=== PATIENT | male | born 1955 | race Caucasian/White ===

== ENCOUNTER 2020-06-12 11:05 | Outpatient (CLI) | payer OTHER, SELFPAY ==
[2020-06-12 13:05] LABS: Potassium 4.2 mmol/L (3.4-5.0)
[2020-06-12 13:11] LABS: Anion Gap 7 mmol/L (8-16); Blood Urea Nitrogen 22 mg/dL (9-20); Carbon Dioxide 25 mmol/L (22-30); Chloride 102 mmol/L (98-107); Cholesterol 148 mg/dL (0-200); Estimated Glomerular Filt Rate 41; Glucose 186 mg/dL (75-110); HDL Direct 28 mg/dL; Sodium 134 mmol/L (137-145); Triglycerides 247 mg/dL (<150)
[2020-06-12 13:17] LABS: LDL Cholesterol Direct 78 mg/dL
[2020-06-12 13:30] LABS: Creatinine Urine 146.5 mg/dL
[2020-06-12 14:14] LABS: Microalbumin Urine Random > 1140.0 mg/L (0-16.7)
== END 2020-06-12 11:06 | disposition home or self-care (01) ==
LOC: ANHWCLAB 11:09
PROVIDERS: PCP Family Medicine; Visit Provider Internal Medicine Endocrinology, Diabetes & Metabolism
DX: E11.65 Type 2 diabetes mellitus with hyperglycemia (principal); Z51.81 Encounter for therapeutic drug level monitoring; Z79.899 Other long term (current) drug therapy; R79.89 Other specified abnormal findings of blood chemistry
CPT/HCPCS: 36415; 80048; 80061; 82043; 84443

== ENCOUNTER 2020-09-24 09:58 | Outpatient (CLI) | payer OTHER, SELFPAY ==
[2020-09-24 13:24] LABS: Anion Gap 11 mmol/L (8-16); Blood Urea Nitrogen 25 mg/dL (9-20); Calcium 9.6 mg/dL (8.4-10.2); Carbon Dioxide 21 mmol/L (22-30); Chloride 106 mmol/L (98-107); Cholesterol 151 mg/dL (0-200); Estimated Glomerular Filt Rate 41; Glucose 204 mg/dL (75-110); HDL Direct 31 mg/dL; Potassium 5.2 mmol/L (3.4-5.0); Sodium 138 mmol/L (137-145); Triglycerides 246 mg/dL (<150)
[2020-09-24 13:35] LABS: LDL Cholesterol Direct 66 mg/dL
[2020-09-24 13:57] LABS: Creatinine Urine 101.5 mg/dL
[2020-09-24 16:04] LABS: MALB Creatinine Ratio 1123.2 mg/g (0-30); Microalbumin Urine Random > 1140.0 mg/L (0-16.7)
== END 2020-09-24 09:59 | disposition home or self-care (01) ==
LOC: ANHWCLAB 10:01
PROVIDERS: PCP Family Medicine; Visit Provider Internal Medicine Endocrinology, Diabetes & Metabolism
DX: E11.65 Type 2 diabetes mellitus with hyperglycemia (principal); R80.9 Proteinuria, unspecified; Z79.4 Long term (current) use of insulin
CPT/HCPCS: 36415; 80048; 80061; 82043; 84443

== ENCOUNTER 2020-10-27 07:47 | Outpatient (CLI) | payer OTHER, SELFPAY ==
[2020-10-27 16:46] LABS: Anion Gap 14 mmol/L (8-16); Blood Urea Nitrogen 25 mg/dL (9-20); Calcium 9.9 mg/dL (8.4-10.2); Carbon Dioxide 21 mmol/L (22-30); Chloride 108 mmol/L (98-107); Estimated Glomerular Filt Rate 36; Glucose 47 mg/dL (65-110); Potassium 4.4 mmol/L (3.4-5.0); Sodium 143 mmol/L (137-145)
== END 2020-10-27 07:48 | disposition home or self-care (01) ==
PROVIDERS: PCP Family Medicine; Visit Provider Internal Medicine Endocrinology, Diabetes & Metabolism
DX: E11.65 Type 2 diabetes mellitus with hyperglycemia (principal); E87.5 Hyperkalemia; Z79.4 Long term (current) use of insulin
CPT/HCPCS: 36415; 80048

== ENCOUNTER 2020-12-01 07:31 | Outpatient (CLI) | payer OTHER, SELFPAY ==
[2020-12-01 16:15] LABS: Basophils Absolute Auto 0.1 K/mm3 (0.0-0.1); Basophils Percent Auto 1.1 % (0.2-1.2); Eosinophils Absolute Auto 0.2 K/mm3 (0-0.3); Eosinophils Percent Auto 2.2 % (0-4.4); Hematocrit 44.6 % (42.0-52.0); Hemoglobin 14.7 g/dL (14.0-18.0); Immature Granulocyte Absolute 0.07 K/mm3 (0.00-0.031); Lymphocytes Absolute Auto 1.36 K/mm3 (0.9-3.2); Mean Corpuscular Hemoglobin 27.9 pg (26-34); Mean Corpuscular Volume 84.6 fl (80-100); Mean Platelet Volume 11.6 fl (7.4-10.4); Monocytes Absolute Auto 0.7 K/mm3 (0.1-0.6); Monocytes Percent Auto 9.3 % (2.6-8.5); Neutrophils Absolute Auto 4.8 K/mm3 (1.3-6.7); Neutrophils Percent Auto 67.4 % (45.5-73.1); Platelet Count Result 274 k/mm3 (150-375); Red Blood Count 5.27 M/mm3 (4.6-6.20); Red Cell Distribution Width 13.2 % (11.5-14.5); White Blood Count 7.2 K/mm3 (4.5-10.0)
[2020-12-01 16:23] LABS: Albumin Level 4.7 g/dL (3.5-5.1); Anion Gap 13 mmol/L (8-16); Blood Urea Nitrogen 28 mg/dL (9-20); Calcium 10.1 mg/dL (8.4-10.2); Carbon Dioxide 22 mmol/L (22-30); Chloride 98 mmol/L (98-107); Estimated Glomerular Filt Rate 36; Glucose 209 mg/dL (65-110); Phosphorus 5.6 mg/dL (2.5-4.5); Potassium 4.6 mmol/L (3.4-5.0); Sodium 133 mmol/L (137-145)
[2020-12-01 16:35] LABS: Parathyroid Intact 23.4 pg/mL (7.5-53.5)
[2020-12-01 16:44] LABS: Vitamin D 25 Hydroxy 50.3 ng/mL
[2020-12-01 16:47] LABS: Creatinine Urine 102.1 mg/dL
[2020-12-01 17:38] LABS: MALB Creatinine Ratio 461.6 mg/g (0-30); Microalbumin Urine Random 471.3 mg/L (0-16.7)
[2020-12-01 18:22] LABS: Add Urine Microscopic? YES; Appearance Urine Clear (Clear); Bilirubin Urine Negative (Negative); Blood Urine Negative (Negative); Color Urine Yellow (Yellow); Glucose Urine UA 3+ mg/dL (Negative); Ketones Urine Negative (Negative); Leukocyte Esterase Ur Negative LEU/UL (NEGATIVE); Nitrate Urine Negative (Negative); Protein Urine 2+ mg/dL (Negative); Specific Grav Ur 1.025 (1.001-1.035); Urobilinogen Urine Negative mg/dL (<2.0)
[2020-12-01 20:18] LABS: RBC Urine 0-2 /hpf (0-2); Squamous Epithelial Cell Urine Few /hpf (Few)
== END 2020-12-01 07:32 | disposition home or self-care (01) ==
LOC: ANHWCLAB 07:42
PROVIDERS: PCP Family Medicine
DX: N18.30 Chronic kidney disease, stage 3 unspecified (principal)
CPT/HCPCS: 36415; 80069; 81001; 82043; 82306; 83970; 85025

== ENCOUNTER 2021-03-16 07:23 | Outpatient (CLI) | payer OTHER, SELFPAY ==
[2021-03-16 13:24] LABS: Albumin Level 4.1 g/dL (3.5-5.1); Anion Gap 11 mmol/L (8-16); Blood Urea Nitrogen 31 mg/dL (9-20); Calcium 9.2 mg/dL (8.4-10.2); Carbon Dioxide 22 mmol/L (22-30); Chloride 106 mmol/L (98-107); Estimated Glomerular Filt Rate 32; Glucose 137 mg/dL (65-110); Phosphorus 3.6 mg/dL (2.5-4.5); Potassium 4.1 mmol/L (3.4-5.0); Sodium 139 mmol/L (137-145)
[2021-03-16 13:37] LABS: Basophils Absolute Auto 0.1 K/mm3 (0.0-0.1); Eosinophils Absolute Auto 0.1 K/mm3 (0-0.3); Eosinophils Percent Auto 2.1 % (0-4.4); Hematocrit 41.7 % (42.0-52.0); Hemoglobin 13.9 g/dL (14.0-18.0); Immature Granulocyte Absolute 0.03 K/mm3 (0.00-0.031); Immature Granulocyte Percent A 0.4 % (0-0.5); Lymphocytes Absolute Auto 1.14 K/mm3 (0.9-3.2); Lymphocytes Percent Auto 17.1 % (18.3-44.2); Mean Corpuscular HGB Conc 33.3 g/dl (32-36); Mean Corpuscular Hemoglobin 28.9 pg (26-34); Mean Corpuscular Volume 86.7 fl (80-100); Mean Platelet Volume 11.7 fl (7.4-10.4); Monocytes Absolute Auto 0.6 K/mm3 (0.1-0.6); Monocytes Percent Auto 8.2 % (2.6-8.5); Neutrophils Absolute Auto 4.7 K/mm3 (1.3-6.7); Neutrophils Percent Auto 71.2 % (45.5-73.1); Platelet Count Result 232 k/mm3 (150-375); Red Blood Count 4.81 M/mm3 (4.6-6.20); Red Cell Distribution Width 13.7 % (11.5-14.5); White Blood Count 6.7 K/mm3 (4.5-10.0)
[2021-03-16 13:40] LABS: Parathyroid Intact 38.9 pg/mL (7.5-53.5)
== END 2021-03-16 07:24 | disposition home or self-care (01) ==
LOC: ANHWCLAB 07:30
PROVIDERS: PCP Family Medicine
DX: N18.30 Chronic kidney disease, stage 3 unspecified (principal)
CPT/HCPCS: 36415; 80069; 83970; 85025

== ENCOUNTER 2021-03-26 08:24 | Outpatient (CLI) | payer OTHER, SELFPAY ==
--- NOTE | 2021-03-26 08:35 | EST_ITS ---
Patient Info Name: Alex Rachel Age: 65 years : 1955 Gender: Male Ht: 73 in Wt: 240 lbs BSA: 2.40 m2 HR: 72 bpm BP: 156 / 84 mmHg Heart Rhythm: Sinus Rhythm Exam Date: 03/26/2021 8:56 AM Exam Location: [facility] Pulmonary Patient Status: Outpatient Admit Date: 03/26/2021 Staff Ordering Physician: Akil Loco DO Tea Room Manager: Dominique Rodrigues RDCS Attending Provider: DR. LOCO Referring Physician: Edgard MURDOCK; Exercise Technologist: Mary Weller CT Exercise Physician: Akil Loco DO Exam Type: CA stress echo Study Info Indications R07.9 - Chest pain, unspecified Treadmill exercise stress echocardiogram is performed. Summary 1. 1. Negative Wayne exercise stress test for ischemic ST changes by ECG criteria. 2. 2. Reduced functional capacity, achieving 7 METs of workload. 3. 3. Baseline hypertension with hypertensive response to exercise. 4. 4. Appropriate HR response to exercise. 5. 5. Appropriate HR recovery at 1 minute post exercise. 6. 6. Negative stress echocardiogram for ischemia by wall motion analysis. 7. 7. Patient informed of the above results. Stress Echo Findings Left Ventricle Appropriate increase in LV endocardial thickening with systole. Appropriate augmentation of contractility with systole. No wall motion abnormality. Left Ventricle Normal LV systolic function, no wall motion abnormality. Protocol: Wayne Stress ECG Details Stage: REST Duration (min): 16 min : 51 sec Speed (mph): 0.0 Grade (%): 0 HR (bpm): 90 SBP (mmHg): 156 DBP (mmHg): 84 METS: --- Stage: REST Duration (min): 17 min : 22 sec Speed (mph): 0.0 Grade (%): 0 HR (bpm): 86 SBP (mmHg): 156 DBP (mmHg): 84 METS: --- Stage: STAGE 1 Duration (min): 1 min : 0 sec Speed (mph): 1.7 Grade (%): 10 HR (bpm): 100 SBP (mmHg): 156 DBP (mmHg): 84 METS: --- Stage: STAGE 1 Duration (min): 2 min : 0 sec Speed (mph): 1.7 Grade (%): 10 HR (bpm): 112 SBP (mmHg): 156 DBP (mmHg): 84 METS: --- Stage: STAGE 1 Duration (min): 3 min : 0 sec Speed (mph): 1.7 Grade (%): 10 HR (bpm): 120 SBP (mmHg): 211 DBP (mmHg): 75 METS: --- Stage: STAGE 2 Duration (min): 1 min : 0 sec Speed (mph): 2.5 Grade (%): 12 HR (bpm): 129 SBP (mmHg): 211 DBP (mmHg): 75 METS: --- Stage: STAGE 2 Duration (min): 2 min : 0 sec Speed (mph): 2.5 Grade (%): 12 HR (bpm): 137 SBP (mmHg): 241 DBP (mmHg): 69 METS: --- Stage: STAGE 2 Duration (min): 2 min : 2 sec Speed (mph): 0.0 Grade (%): 0 HR (bpm): 138 SBP (mmHg): 241 DBP (mmHg): 69 METS: --- Stage: RECOVERY Duration (min): 0 min : 57 sec Speed (mph): 0.0 Grade (%): 0 HR (bpm): 130 SBP (mmHg): 241 DBP (mmHg): 69 METS: --- Stage: RECOVERY Duration (min): 1 min : 57 sec Speed (mph): 0.0 Grade (%): 0 HR (bpm): 122 SBP (mmHg): 241 DBP (mmHg): 69 METS:
== END 2021-03-26 08:25 | disposition home or self-care (01) ==
LOC: ANHCARD 08:26
PROVIDERS: PCP Family Medicine; Visit Provider Internal Medicine Cardiovascular Disease
DX: R07.9 Chest pain, unspecified (principal)
CPT/HCPCS: 93351

== ENCOUNTER 2021-05-04 07:22 | Outpatient (CLI) | payer OTHER, SELFPAY ==
--- NOTE | 2021-05-04 07:46 | ECHO_ITS ---
Patient Info Name: Alex Rachel Age: 66 years : 1955 Gender: Male Ht: 73 in Wt: 227 lbs BSA: 2.33 m2 HR: 62 bpm BP: 154 / 90 mmHg Technical Quality: Fair Exam Date: 05/04/2021 8:16 AM Exam Location: [facility] Patient Status: Outpatient Admit Date: 05/04/2021 Staff Ordering Physician: Akil Rene DO Petal Shaper Hand: Katey Beasley RDCS Attending Provider: Akil Rene DO Referring Physician: Edgard MURDOCK; Exam Type: CA echo doppler color flow Study Info Indications R01.1 - Cardiac murmur, unspecified Complete two-dimensional, color flow and Doppler transthoracic echocardiogram is performed. Summary 1. Complete two-dimensional, color flow and Doppler transthoracic echocardiogram is performed. 2. Left ventricular chamber dimension is normal. 3. Left ventricular systolic function is normal, estimated at 60-65%. 4. There is mildly increased left ventricular wall thickness. 5. The left ventricular diastolic function is grade I diastolic dysfunction. 6. E/e' 10 is mildly elevated. 7. Global longitudinal strain is abnormal at -14.4%. 8. There is mild aortic valve sclerosis. 9. There is trace tricuspid valve regurgitation. 10. No pulmonary hypertension, estimated pulmonary arterial systolic pressure is 26 mmHg. 11. There is trace pulmonic regurgitation. Left Ventricle E/e' 10 is mildly elevated. Global longitudinal strain is abnormal at -14.4%. Left ventricular chamber dimension is normal. Left ventricular systolic function is normal, estimated at 60-65%. There is mildly increased left ventricular wall thickness. The left ventricular diastolic function is grade I diastolic dysfunction. Right Ventricle Right ventricular chamber dimension is normal. Right ventricular systolic function is normal. Left Atria Left atrial chamber dimension is normal. Right Atria Right atrial chamber dimension is normal. Aortic Valve The aortic valve is trileaflet. There is mild aortic valve sclerosis. There is no aortic valve stenosis. There is no aortic valve regurgitation. Pulmonic Valve There is trace pulmonic regurgitation. Mitral Valve There is no mitral valve stenosis. There is no mitral valve regurgitation. Tricuspid Valve There is trace tricuspid valve regurgitation. No pulmonary hypertension, estimated pulmonary arterial systolic pressure is 26 mmHg. Pericardium/Pleural There is no pericardial effusion. Inferior Vena Cava Normal inferior vena cava with >50% collapse upon inspiration consistent with normal right atrial pressure, 5 mmHg. Aorta The aortic root size at the sinus of Valsalva is normal. Left Ventricular Outflow Tract Name Value Normal LVOT 2D LVOT Diameter 2.0 cm LVOT Doppler LVOT Peak Gradient 4 mmHg LVOT Mean Gradient 2 mmHg LVOT VTI 20 cm LVOT VTI/AV VTI Ratio 0.9 LVOT Stroke Volume 64 ml LVOT CO 3.9 l/min LVOT CI 1.7 l/min/m2
== END 2021-05-04 07:23 | disposition home or self-care (01) ==
PROVIDERS: PCP Family Medicine; Visit Provider Internal Medicine Cardiovascular Disease
DX: R01.1 Cardiac murmur, unspecified (principal); I35.8 Other nonrheumatic aortic valve disorders
CPT/HCPCS: 93306

== ENCOUNTER → 2022-05-05 07:33 | Outpatient (CLI) | payer MEDICARE, MEDICAID, SELFPAY ==
--- NOTE | ~2022-05-05 | US_ITS ---
Limited Abdominal Sonogram: Real-time sonographic imaging of the right upper quadrant was performed. Clinical History: Right upper quadrant pain Findings: The liver appears normal with no evidence of mass lesion or bile duct dilatation. Main por deng vein demonstrates normal direction of flow. The gallbladder is well distended, and appears normal with no evidence of gallstone or wall thickening. The common bile duct measures 4 mm. The visualize d aorta is unremarkable. Pancreas and IVC are obscured by bowel gas shadowing. Right kidney measures 10.2 cm in length, without evidence of hydronephrosis. Impression: No significant abnormality seen. Reviewed, dictated and finalized at location . CHECKER Impression: No significant abnormality seen.
== END ==
PROVIDERS: PCP Family Medicine; Visit Provider Physician Assistant
DX: R10.11 Right upper quadrant pain (principal)
CPT/HCPCS: 76705

== ENCOUNTER 2022-11-07 21:12 | Emergency (ER) | payer MEDICARE, MEDICAID, SELFPAY ==
--- NOTE | 2022-11-07 21:52 | PC.NURSE ---
Patient came do desk and stated I'm going home. Patient ambulated out of ED with a steady gait. NAD noted.
== END 2022-11-08 00:50 | disposition left against medical advice (07) ==
PROVIDERS: PCP Family Medicine
DX: Z53.21 Procedure and treatment not carried out due to patient leaving prior to being seen by health care provider (principal)
CPT/HCPCS: 99199

== ENCOUNTER 2023-09-27 07:55 | Outpatient (CLI) | payer MEDICARE, MEDICAID, SELFPAY ==
--- NOTE | ~2023-09-27 | US_ITS ---
EXAMINATION: US retroperitoneal duplex ltd DATE: 09/27/2023 09:22 INDICATION: hypertension TECHNIQUE: Multiple grayscale, color Doppler, and pulsed Doppler images of the kidneys and renal fransisco jacqueline were obtained. COMPARISON: None. FINDINGS: The aorta peak systolic velocity is 63 cm/s. The right renal artery peak systolic velocity is 102 cm/ s in the proximal segment, 128 cm/s in the mid segment, and 68 cm/s in the distal segment. The left r enal artery peak systolic velocity is 61 cm/s in the proximal segment, 51 cm/s in the mid segment, an d 41 cm/s in the distal segment. IMPRESSION: 1. No Doppler evidence of renal artery stenosis. Reviewed, dictated and finalized at location A.
--- NOTE | ~2023-09-27 | US_ITS ---
US renal BI Ordering provider: Nataly Gama APRN History: . STAGE 3B CKD;ESSENTIAL HYPERTENSION;PROTEINURIA . Comparison: None. Technique: Ultrasound bilateral kidneys. Findings: RIGHT KIDNEY: Measures 10.4x 4.9x 4.6cm in length which is normal in size. No renal cysts. No renal m ass or visualized echogenic stones. Otherwise, normal echotexture and contour. No hydronephrosis. Nor mal renal cortical thickness. LEFT KIDNEY: Measures 10.3x 5.9x 3.7 cm in length which is normal in size. Cyst is seen superior and lateral measuring 1.5 x 1.7 x 1.8 cm. No renal mass or visualized echogenic stones. Otherwise, normal echotexture and contour. No hydronephrosis. Normal renal cortical thickness. BLADDER: Normal. ureteral jet seen was not seen on the right IMPRESSION: Left renal cyst. Otherwise normal. Reviewed, dictated and finalized at location A.
== END 2023-09-27 07:56 | disposition home or self-care (01) ==
PROVIDERS: PCP Family Medicine; Visit Provider Nurse Practitioner Family
DX: I12.9 Hypertensive chronic kidney disease with stage 1 through stage 4 chronic kidney disease, or unspecified chronic kidney disease (principal); N18.32 Chronic kidney disease, stage 3b; N28.1 Cyst of kidney, acquired; R80.9 Proteinuria, unspecified
CPT/HCPCS: 76775; 93976

== ENCOUNTER 2023-12-07 17:19 | Emergency (ER) | payer MEDICARE, MEDICAID, SELFPAY ==
--- NOTE | ~2023-12-07 | CT_ITS ---
EXAMINATION: CT IAC/mastoids BI w con DATE: 12/07/2023 19:12 INDICATION: Left ear infection and pain. TECHNIQUE: Computed tomography (CT) of the temporal bones was performed with 100 mL Omnipaque 350 int ravenous contrast. Automated exposure control and iterative reconstruction technique were employed. T he dose-length product was 369.03 mGy-cm. COMPARISON: None FINDINGS: RIGHT TEMPORAL BONE: The internal auditory canal, cochlea, vestibule, semicircular canals, vestibular aqueduct, carotid ca nal, jugular bulb, facial nerve course, ossicles are normal. There is material in Prussak space. Ther e is blunting of scutum. The tympanic membrane is normal. There is a right mastoid effusion. The exte rnal artery canal is normal. LEFT TEMPORAL BONE: The internal auditory canal, cochlea, vestibule, semicircular canals, vestibular aqueduct, carotid canal, jugular bulb, facial nerve course, and ossicles are normal. There is material in the t ympanic cavity including around the ossicles and in Prussak space. There is blunting of scutum. There is extensive material in left external auditory canal. There is soft tissue thickening of left exter nal auditory canal. There is a left mastoid effusion. IMPRESSION: 1. Left-sided otitis externa and otitis media. 2. Material in right Prussak space with blunting of scutum, consistent with chronic otitis media vers us cholesteatoma. Reviewed, dictated and finalized at location A. IMPRESSION: 1. Left-sided otitis externa and otitis media. 2. Material in right Prussak space with blunting of scutum, consistent with chr onic otitis media versus cholesteatoma.
[2023-12-07 17:22] VITALS: BP 210/89; PULSE 68; RESP 18; TEMP 36.6; O2SAT 97
--- NOTE | 2023-12-07 17:33 | ECG_ITS ---
Test Date: 2023-12-07 17:38:15 Measurements Intervals [place] Rate: 63 P: 41 ID: [id number] QRS: -14 QRSD: 82 T: 84 QT: 412 QTc: 423 Interpretive Statements SINUS RHYTHM WITH FIRST DEGREE AV BLOCK NONSPECIFIC T-WAVE ABNORMALITY ABNORMAL ECG No previous ECG available for comparison Electronically Signed On 12-08-2023 13:14:56 CDT by Lucio Emanuel M.D.
[2023-12-07 17:47] VITALS: BP 212/103; PULSE 66; RESP 16; O2SAT 100
[2023-12-07] MEDS: MORPHINE SULFATE (*CRX) 4 MG/ML INJ IV PUSH (18:16)
[2023-12-07 18:21] VITALS: PULSE 63; RESP 16; O2SAT 98
[2023-12-07 18:22] LABS: Basophils Percent Auto 0.6 % (0.2-1.2); Eosinophils Absolute Auto 0.1 K/mm3 (0-0.3); Eosinophils Percent Auto 1.3 % (0-4.4); Hematocrit 42.6 % (42.0-52.0); Hemoglobin 14.3 g/dL (14.0-18.0); Immature Granulocyte Absolute 0.08 K/mm3 (0.00-0.031); Immature Granulocyte Percent A 1.1 % (0-0.5); Lymphocytes Absolute Auto 1.35 K/mm3 (0.9-3.2); Mean Corpuscular HGB Conc 33.6 g/dl (32-36); Mean Corpuscular Hemoglobin 29.2 pg (26-34); Mean Corpuscular Volume 86.9 fl (80-100); Monocytes Absolute Auto 0.6 K/mm3 (0.1-0.6); Platelet Count Result 215 k/mm3 (150-375); Red Cell Distribution Width 13.9 % (11.5-14.5); White Blood Count 7.1 K/mm3 (4.5-10.0)
[2023-12-07 18:30] VITALS: PULSE 64; RESP 14; O2SAT 98
[2023-12-07 18:31] VITALS: BP 168/87; PULSE 65; RESP 16; O2SAT 99
[2023-12-07 18:32] LABS: Alanine Aminotransferase 17 U/L (6-50); Albumin Level 4.1 g/dL (3.5-5.1); Alkaline Phosphatase 75 U/L (38-126); Anion Gap 12 mmol/L (4-12); Aspartate Amino Transferase 23 U/L (17-59); Bilirubin,Total 0.6 mg/dL (0.2-1.3); Blood Urea Nitrogen 30 mg/dL (9-20); Calcium 8.8 mg/dL (8.4-10.2); Carbon Dioxide 17 mmol/L (22-30); Chloride 103 mmol/L (98-107); Estimated CRCL calculation 36 ml/min; Estimated Glomerular Filt Rate 32; Glucose 94 mg/dL (65-110); Potassium 4.5 mmol/L (3.4-5.0); Sodium 132 mmol/L (137-145)
--- NOTE | 2023-12-07 19:38 | ED.EAR ---
HPI - Ear Problem General Chief complaint: Ear Stated complaint: real bad ear ache Time Seen by Provider: 12/07/23 17:49 History of Present Illness HPI Narrative: Patient is a 68-year-old male who presents ER with left-sided ear pain. Ongoing over last month. He is originally on antibiotic ear drops but then developed a ruptured tympanic membrane and was switched to oral antibiotics. He has been on multiple oral medications but symptoms continue. He has pain behind his ear that causes headache. No fevers or chills or sweats. No drainage from his ear. He has not seen an ear nose and throat doctor. No pain control with Tylenol. His chronic kidney disease and cannot take anti-inflammatories. Related Data Home Medications Medication Instructions Recorded Confirmed omeprazole 40 mg capsule,delayed 40 mg PO BID 07/14/22 10/18/23 release hydralazine 25 mg tablet 25 mg PO BID 08/10/23 10/18/23 Allergies Allergy/AdvReac Type Severity Reaction Status Date / Time No Known Allergies Allergy Verified 10/18/23 08:39 Review of Systems Constitutional: Constitutional: Reports no additional constitutional complaints ENT: Denies vertigo, Denies nasal congestion and Denies sore throat Comments: Decreased hearing left side with ear pain Neurologic: Reports system reviewed and no additional complaints, except as documented PMFSH Past Medical History Medical History Adrenal adenoma Body mass index (BMI) 23 or greater (05/26/18) Chronic kidney disease Essential (primary) hypertension High thyroid stimulating hormone (TSH) level Hyperkalemia Hyperlipidemia Hypertension Hypertriglyceridemia Murmur Obesity Type 2 diabetes mellitus with proteinuria Surgical History Surgical History Hx of appendectomy Family History Family History Other Cerebrovascular accident Family history of cardiovascular disease Hypertension Social History Social History Smoking status: Never smoker Alcohol intake: never Substance use: never Do You Feel Safe in your Home?: Yes Lack of Transportation: No Lack of Food: Never True Current Housing: I Have Housing Concerned About Future Housing: No Difficulty Paying Gas/Electric Bills: No Difficulty Paying for Meds: No Currently Unemployed: No Education: High School Diploma/GED Difficulty w/ Childcare or Family Care: Decline to Answer Exam Narrative: GENERAL: Well-appearing, well-nourished, and in no acute distress. HEAD: Normocephalic, atraumatic. ENT: Mucous membranes moist. left ear canal very edematous without drainage. Unable to visualize tympanic membrane. No mastoid swelling or redness. Right ear canal normal and TM normal. NECK: Supple. CHEST: Clear to auscultation. No respiratory distress. HEART: Regular rate and rhythm. Normal peripheral pulses. EXTREMITIES: Normal range of motion. No edema. NEURO: Alert and oriented x3. PSYCH: Normal mood and affect. Course Course Emergency Course: Patient resting comfortably. Informed of results. Continue doxycycline and start Ciprodex ear drops. Will give ENT follow-up. eSlvin for pain. Vital Signs Vital signs: Vital Signs Temperature 97.8 F 12/07/23 17:22 Pulse Rate 68 12/07/23 17:22 Respiratory Rate 18 12/07/23 17:22 Blood Pressure 210/89 H 12/07/23 17:22 Pulse Oximetry 97 12/07/23 17:22 Oxygen Delivery Room Air 12/07/23 17:22 Temperature 97.8 F 12/07/23 17:22 Pulse Rate 66 12/07/23 17:47 Respiratory Rate 16 12/07/23 17:47 Blood Pressure 212/103 H 12/07/23 17:47 Pulse Oximetry 100 12/07/23 17:47 Oxygen Delivery Room Air 12/07/23 17:47 Medical Decision Making Vital Signs Vital Signs: Vital Signs T
== END 2023-12-07 20:27 | disposition home or self-care (01) ==
PROVIDERS: Emergency Provider Emergency Medicine; PCP Physician Assistant
DX: H60.92 Unspecified otitis externa, left ear (principal); I12.9 Hypertensive chronic kidney disease with stage 1 through stage 4 chronic kidney disease, or unspecified chronic kidney disease; E11.22 Type 2 diabetes mellitus with diabetic chronic kidney disease; N18.9 Chronic kidney disease, unspecified; E78.5 Hyperlipidemia, unspecified; E66.9 Obesity, unspecified; Z68.29 Body mass index [BMI] 29.0-29.9, adult; I44.0 Atrioventricular block, first degree; R94.31 Abnormal electrocardiogram [ECG] [EKG]; H66.92 Otitis media, unspecified, left ear; R93.0 Abnormal findings on diagnostic imaging of skull and head, not elsewhere classified; Z79.85 Long-term (current) use of injectable non-insulin antidiabetic drugs; Z79.4 Long term (current) use of insulin; Z79.899 Other long term (current) drug therapy
CPT/HCPCS: 36415; 70481; 80053; 85025; 93005; 96374; 99284; J2270; Q9967

== ENCOUNTER 2024-02-22 12:31 | Inpatient (IN) | payer MEDICARE, MEDICAID, SELFPAY ==
[2024-02-22] VITALS (46 sets, daily range): BP systolic 165–208; BP diastolic 71–100; PULSE 77–94; RESP 12–24; TEMP 36.1; O2SAT 72–100
--- NOTE | ~2024-02-22 | CT_ITS ---
CT brain wo con Ordering provider: Samy Figueroa MD History: 68 years Male with . left sided facial droop . Comparison: None. Technique: CT of the head without contrast. Radiation reduction technique utilized.The dose-length pr oduct was 681 mGy-cm. FINDINGS: BRAIN PARENCHYMA AND CSF SPACES: No midline shift, mass effect or hemorrhage. The brain parenchyma a nd CSF spaces are otherwise normal. VISUALIZED PARANASAL SINUSES: Bilateral maxillary sinus disease. MASTOIDS: Left mastoid air cells effusion. Fluid in the left middle ear. Soft tissue density is seen in the left external auditory canal. BONES: The bones appear intact. SOFT TISSUES: Visualized nasopharynx is normal. Superficial soft tissues are normal. IMPRESSION: No acute intracranial findings. Reviewed, dictated and finalized at location A. LATOR CUTTER AND FORMER
--- NOTE | ~2024-02-22 | XR_ITS ---
EXAMINATION: XR chest 1V DATE: 02/22/2024 13:27 INDICATION: Left facial weakness. Chest pain. TECHNIQUE: A single frontal view of the chest was obtained. COMPARISON: Chest 2 views 04/13/2017 FINDINGS: There is no pneumonia, pleural effusion, or pneumothorax. The heart size is normal. IMPRESSION: 1. No acute cardiopulmonary disease. Reviewed, dictated and finalized at location A. VETERINARIAN
--- NOTE | ~2024-02-22 | CT_ITS ---
EXAMINATION: CTA brain carotid DATE: 02/22/2024 15:40 INDICATION: Left facial weakness. TECHNIQUE: Computed tomographic angiography (CTA) of the head was performed with 100 mL Omnipaque-350 intravenous contrast. CTA of the neck was performed with intravenous contrast. Automated exposure co ntrol and iterative reconstruction technique were employed. The dose-length product was 1207.26 mGy-c m. Maximum intensity projection and volume rendered 3D-reconstructions were created by the [employer] st on a separate workstation. COMPARISON: Head CT 02/22/2024, temporal bone CT 11/29/2023 FINDINGS: HEAD CTA: There is no intracranial hemorrhage, acute infarction, or abnormal intracranial mass lesion . The ventricles are normal in size. There is mild mucosal thickening in the paranasal sinuses. The o rbits are normal. There is a small right mastoid effusion. There is a left otomastoid effusion. There is material filling the left external auditory canal. There are erosions of the mastoid portion of t he left temporal bone with subperiosteal abscess superficial to the left temporal bone measuring 2.5 x 0.3 x 2.3 cm. Right vertebral artery is dominant. There is no significant stenosis of basilar arter y. Left P1 posterior cerebral artery is small or occluded. Left posterior communicating artery is nor mal and is the main blood source to the P2 segment of left posterior cerebral artery. A right posteri or communicating artery is not identified. There is no significant stenosis of the intracranial inter nal carotid arteries or anterior or middle cerebral arteries. Anterior communicating artery is normal . There is no aneurysm. NECK CTA: There are no pathologically enlarged lymph nodes. There is no significant stenosis of the v ertebral arteries. There is plaque in the proximal internal carotid. There is 0% stenosis of the prox imal right internal carotid artery relative to normal distal artery lumen diameter (NASCET criteria). There is 0% stenosis of the proximal left internal carotid artery relative to normal distal artery l umen diameter. There is severe cervical spondylosis. IMPRESSION: 1. Left-sided otitis media, otitis externa, and mastoiditis with subperiosteal abscess of the mastoid portion of the left temporal bone. Involvement of the left facial nerve is likely the cause of the p atient's symptoms. 2. Normal brain. 3. Small versus occluded left P1 posterior cerebral artery segment. 4. 0% stenosis of the proximal internal carotid arteries relative to normal distal artery lumen diame ters (NASCET criteria). Reviewed, dictated and finalized at location A. SAW OPERATOR IMPRESSION: 1. Left-sided otitis media, otitis externa, and mastoiditis with subperiosteal abscess of the mastoid portion of the left temporal bone. Involvement of the le ft facial nerve is likely the cause of the patient's symptoms. 2. Normal brain. 3. Small versus occluded left P1 posterior cerebral artery segment. 4. 0% stenosis of the proximal internal carotid arteries relative to normal dis deng artery lumen diameters (NASCET criteria).
--- NOTE | 2024-02-22 12:56 | ECG_ITS ---
Test Date: 2024-02-22 13:03:08 Measurements Intervals [place] Rate: 75 P: 43 MN: 179 QRS: -19 QRSD: 80 T: 124 QT: 398 QTc: 444 Interpretive Statements SINUS RHYTHM POSSIBLE RIGHT VENTRICULAR CONDUCTION DELAY LEFT VENTRICULAR HYPERTROPHY WITH ST-T CHANGE BASELINE ARTIFACT- I, II, III, AVR, AVL, AVF, V1-V6 BORDERLINE ECG Compared to ECG 12/07/2023 17:38:15 First degree AV block no longer present Electronically Signed On 02-22-2024 13:20:10 REGISTRAR MUSEUM by Akil Rene D.O.
[2024-02-22 13:07] LABS: Glucose Point of Care 138 mg/dl (65-105)
[2024-02-22 13:21] LABS: Basophils Absolute Auto 0.1 K/mm3 (0.0-0.1); Basophils Percent Auto 0.7 % (0.2-1.2); Eosinophils Absolute Auto 0.1 K/mm3 (0-0.3); Eosinophils Percent Auto 1.1 % (0-4.4); Hematocrit 41.3 % (42.0-52.0); Hemoglobin 13.7 g/dL (14.0-18.0); Immature Granulocyte Absolute 0.08 K/mm3 (0.00-0.031); Immature Granulocyte Percent A 1.1 % (0-0.5); Lymphocytes Absolute Auto 0.82 K/mm3 (0.9-3.2); Lymphocytes Percent Auto 11.3 % (18.3-44.2); Mean Corpuscular HGB Conc 33.2 g/dl (32-36); Mean Corpuscular Hemoglobin 29.1 pg (26-34); Mean Corpuscular Volume 87.7 fl (80-100); Mean Platelet Volume 9.7 fl (7.4-10.4); Monocytes Absolute Auto 0.6 K/mm3 (0.1-0.6); Monocytes Percent Auto 8.7 % (2.6-8.5); Neutrophils Absolute Auto 5.6 K/mm3 (1.3-6.7); Neutrophils Percent Auto 77.1 % (45.5-73.1); Platelet Count Result 320 k/mm3 (150-375); Red Blood Count 4.71 M/mm3 (4.6-6.20); Red Cell Distribution Width 13.3 % (11.5-14.5); White Blood Count 7.3 K/mm3 (4.5-10.0)
[2024-02-22 13:32] LABS: Prothrombin Time 13.2 Seconds (11.1-14.7)
[2024-02-22 13:40] LABS: Partial Thromboplastin Time 27.2 Seconds (22.3-36.8)
[2024-02-22 13:53] LABS: Alanine Aminotransferase 18 U/L (6-50); Albumin Level 3.2 g/dL (3.5-5.1); Alkaline Phosphatase 95 U/L (38-126); Anion Gap 8 mmol/L (4-12); Aspartate Amino Transferase 19 U/L (17-59); Bilirubin,Total 0.6 mg/dL (0.2-1.3); Blood Urea Nitrogen 30 mg/dL (9-20); Calcium 8.8 mg/dL (8.4-10.2); Carbon Dioxide 16 mmol/L (22-30); Chloride 109 mmol/L (98-107); Estimated CRCL calculation 31 ml/min; Estimated Glomerular Filt Rate 27; Glucose 121 mg/dL (65-110); Potassium 4.8 mmol/L (3.4-5.0); Sodium 133 mmol/L (137-145)
[2024-02-22 14:06] LABS: Troponin I 0.027 ng/mL (0.000-0.034)
--- NOTE | 2024-02-22 16:36 | ED_ITS ---
HPI - General Adult General Chief complaint: Neuro Symptoms/Deficit Stated complaint: I think I'm having a stroke Time Seen by Provider: 02/22/24 15:11 History of Present Illness HPI narrative: 68-year-old male presents to the emergency department for evaluation for worsening facial pain and onset of left-sided facial droop. patient has been struggling with a left-sided otitis media for approximately last 4 months. Patient does follow-up with an ENT at [facility]. Patient is currently on Cipro. Patient reports that yesterday at 4:00 p.m. he started having some left-sided facial droop. Patient states he was unable to get a hold of his physician at [facility] so he presented to [place] emergency department for evaluation. Patient denies any other associated numbness or weakness. Patient does have left-sided facial droop. Related Data Home Medications Medication Instructions Recorded Confirmed omeprazole 40 mg capsule,delayed 40 mg PO BID 07/14/22 10/18/23 release hydralazine 25 mg tablet 25 mg PO BID 08/10/23 10/18/23 Allergies Allergy/AdvReac Type Severity Reaction Status Date / Time No Known Allergies Allergy Verified 02/22/24 13:09 Review of Systems Review of Systems: All systems reviewed & are unremarkable except as noted in HPI and below PMFSH Past Medical History Medical History Adrenal adenoma Body mass index (BMI) 23 or greater (05/26/18) Chronic kidney disease Essential (primary) hypertension High thyroid stimulating hormone (TSH) level Hyperkalemia Hyperlipidemia Hypertension Hypertriglyceridemia Murmur Obesity Type 2 diabetes mellitus with proteinuria Surgical History Surgical History Hx of appendectomy Family History Family History Other Cerebrovascular accident Family history of cardiovascular disease Hypertension Social History Social History Smoking status: Never smoker Alcohol intake: never Substance use: never Do You Feel Safe in your Home?: Yes Lack of Transportation: No Lack of Food: Never True Current Housing: I Have Housing Concerned About Future Housing: No Difficulty Paying Gas/Electric Bills: No Difficulty Paying for Meds: No Currently Unemployed: No Education: High School Diploma/GED Difficulty w/ Childcare or Family Care: Decline to Answer Exam Narrative: APPEARANCE: Uncomfortable appearing HEAD: normocephalic, atraumatic. EYES: PERRLA/EOMI, conjunctivae clear. NOSE: Normal no drainage EARS:TMS clear with good light reflex. THROAT: Pharynx clear, no exudate. NECK: Supple. No adenopathy, no masses. RESPIRATORY: Airway patent, respirations nonlabored. Clear to auscultation bilaterally, no rales, rhonchi, wheezing. CARDIOVASCULAR: Regular rate and rhythm without murmurs rubs or gallops. ABDOMINAL: Soft, nontender, nondistended, normal bowel sounds MUSCULOSKELETAL: Moves all extremities. Strength/ROM intact, No edema, No calf tenderness. NEURO: Alert. left-sided facial droop, decreased blink on the left, forehead is involved. no numbness or weakness in arms or legs and no drift. SKIN: Warm, dry. Normal Color Course Vital Signs Vital signs: Vital Signs Pulse Oximetry 99 02/22/24 12:32 Temperature 97.0 F L 02/22/24 12:41 Pulse Rate 82 02/22/24 19:19 Respiratory Rate 16 02/22/24 19:19 Blood Pressure 176/80 H 02/22/24 19:19 Pulse Oximetry 98 02/22/24 19:19 Medical Decision Making [facility] Narrative Medical decision making narrative: 68-year-old male presents emergency department for evaluation for left-sided facial droop secondary to a left-sided otitis media, otitis externa and mastoiditis identified on CT scan. CTA showed no acute abnormalities with the brain. I discussed the case with Dr. Castrejon the ENT at [facility] and they recommended transfer due to potential surgery. patient was started on vanc cefepime and Flagyl in the emergency department. Patient and family were updated on the need for transfer. [facility] was consulted for transfer. patient was accepted for transfer. Case was also discussed with hospitalist. discussed case with ENT and they did not feel the patient needed to be started on valacyclovir prednisone they were comfortable with maintaining the antibiotics. Discussed case with hospitalist patient was accepted for admission. Differential Diagnosis Differential Diagnosis: CVA, TIA, Sharma's palsy, otitis media, otitis externa, mastoiditis Vital Signs Vital Signs: Vital Signs Pulse Oximetry 99 02/22/24 12:32 Temperature 97.0 F L 02/22/24 12:41 Pulse Rate 82 02/22/24 19:19 Respiratory Rate 16 02/22/24 19:19 Blood Pressure 176/80 H 02/22/24 19:19 Pulse Oximetry 98 02/22/24 19:19 Lab Data Lab results reviewed: Yes I reviewed the patient's lab results. 02/22/24 13:09 02/22/24 13:09 Labs: Lab Results 02/22/24 02/22/24 Range/Units 12:58 13:09 WBC 7.3 (4.5-10.0) K/mm3 RBC 4.71 (4.6-6.20) M/mm3 Hgb 13.7 L (14.0-18.0) g/dL Hct 41.3 L (42.0-52.0) % MCV 87.7 (80-100) fl MCH 29.1 (26-34) pg MCHC 33.2 (32-36) g/dl RDW 13.3 (11.5-14.5) % Plt Count 320 (150-375) k/mm3 MPV 9.7 (7.4-10.4) fl Immature Gran % (Auto) 1.1 H (0-0.5) % Neut % (Auto) 77.1 H (45.5-73.1) % Lymph % (Auto) 11.3 L (18.3-44.2) % [place] % (Auto) 8.7 H (2.6-8.5) % Eos % (Auto) 1.1 (0-4.4) % Baso % (Auto) 0.7 (0.2-1.2) % Lymph # (Auto) 0.82 L (0.9-3.2) K/mm3 [place] # (Auto) 0.6 (0.1-0.6) K/mm3 Eos # (Auto) 0.1 (0-0.3) K/mm3 Baso # (Auto) 0.1 (0.0-0.1) K/mm3 Abs Immat Gran (auto) 0.08 H (0.00-0.031) K/mm3 Absolute Neuts (auto) 5.6 (1.3-6.7) K/mm3 Absolute Nucleated RBC 0.000 (0.0-0.012) K/mm3 Nucleated RBC % 0.0 (0.0-0.2) % PT 13.2 (11.1-14.7) Seconds INR 1.0 APTT 27.2 (22.3-36.8) Seconds Sodium 133 L (137-145) mmol/L Potassium 4.8 (3.4-5.0) mmol/L Chloride 109 H (98-107) mmol/L Carbon Dioxide 16 L (22-30) mmol/L Anion Gap 8 (4-12) mmol/L BUN 30 H (9-20) mg/dL Creatinine 2.40 H (0.7-1.3) mg/dL Estim Creat Clear Calc 31 ml/min Estimated GFR 27 L (59 - ) Glucose 121 H (65-110) mg/dL POC Capillary Glucose 138 H (65-105) mg/dl Calcium 8.8 (8.4-10.2) mg/dL Total Bilirubin 0.6 (0.2-1.3) mg/dL AST 19 (17-59) U/L ALT 18 (6-50) U/L Alkaline Phosphatase 95 (38-126) U/L Troponin I 0.027 (0.000-0.034) ng/mL Total Protein 6.0 L (6.3-8.2) g/dL Albumin 3.2 L (3.5-5.1) g/dL Imaging Data Radiologist's impression: Impressions Head CT 02/22/24 13:23 IMPRESSION: No acute intracranial findings. Chest X-Ray 02/22/24 13:27 IMPRESSION: 1. No acute cardiopulmonary disease. Head/Neck CTA 02/22/24 15:44 IMPRESSION: 1. Left-sided otitis media, otitis externa, and mastoiditis with subperiosteal abscess of the mastoid portion of the left temporal bone. Involvement of the left facial nerve is likely the cause of the patient's symptoms. 2. Normal brain. 3. Small versus occluded left P1 posterior cerebral artery segment. 4. 0% stenosis of the proximal internal carotid arteries relative to normal d istal artery lumen diameters (NASCET criteria). Critical Care Time Critical Care Time Critical Care Time: Yes Total Critical Care Time: 35 Discharge Plan Discharge Clinical Impression: Chronic kidney disease Patient Disposition: Acute Care Hospital Condition: Serious Prescriptions: No Action (DME) Dexcom G7 Fire Coordinator Misc See Rx Instructions .Route Qty: 1 0RF Rx Instructions: As directed (DME) Dexcom G7 Sensor Device See Rx Instructions .Route Qty: 9 3RF Rx Instructions: change every 10 days [place] U-100 Insulin 100 unit/mL insulin pen 18 unit subcut TIDWMEAL MDD 60 Qty: 54 1RF rosuvastatin 20 mg tablet See Rx Instructions .ROUTE .COMPLEX Qty: 90 1RF Dose Instruction: TAKE 1 TABLET BY MOUTH EVERY DAY Rx Instructions: TAKE 1 TABLET BY MOUTH EVERY DAY hydralazine 25 mg tablet 25 mg PO BID Ozempic 1 mg/dose (4 mg/3 mL) pen injector 1 mg subcut WEEKLY 90 Days Qty: 9 4RF omeprazole 40 mg capsule,delayed release(DR/EC) 40 mg PO BID ciprofloxacin-dexamethasone 0.3-0.1 % drops,suspension 4 drp EACH EAR Q12H 7 Days Qty: 7.5 0RF hydrocodone-acetaminophen 5-325 mg tablet 1 tablet PO Q6H PRN (Reason: pain) Qty: 20 0RF lancets [OneTouch Delica Plus Lancet] 33 gauge misc See Rx Instructions .ROUTE .COMPLEX Qty: 400 1RF Dose Instruction: CHECK FOUR TIMES DAILY Rx Instructions: CHECK FOUR TIMES DAILY pen needle, diabetic [BD Margarita 2nd Gen Pen Needle] 32 gauge x 5/32 needle See Rx Instructions .ROUTE .COMPLEX Qty: 100 7RF Dose Instruction: USE TWICE DAILY WITH VICTOZA AND LANTUS INJECTIONS Rx Instructions: USE TWICE DAILY WITH VICTOZA AND LANTUS INJECTIONS (DME) OneTouch Verio test strips Strip See Rx Instructions .ROUTE .MEDSUPPLY Qty: 400 1RF Rx Instructions: use four times daily icosapent ethyl [Vascepa] 1 gram capsule 2 g PO BID Qty: 360 3RF Farxiga 10 mg tablet 10 mg PO DAILY Qty: 90 1RF amlodipine 10 mg tablet See Rx Instructions .ROUTE .COMPLEX Qty: 90 1RF Dose Instruction: TAKE 1 TABLET BY MOUTH EVERY DAY Rx Instructions: TAKE 1 TABLET BY MOUTH EVERY DAY ergocalciferol (vitamin D2) 1,250 mcg (50,000 unit) capsule See Rx Instructions .ROUTE .COMPLEX Qty: 14 0RF Dose Instruction: TAKE 1 CAPSULE BY MOUTH WEEKLY FOR 14 WEEKS Rx Instructions: TAKE 1 CAPSULE BY MOUTH WEEKLY FOR 14 WEEKS metoprolol succinate 25 mg tablet extended release 24 hr See Rx Instructions .ROUTE .COMPLEX Qty: 90 1RF Dose Instruction: 25 MG ORALLY DAILY Rx Instructions: 25 MG ORALLY DAILY Toujeo SoloStar U-300 Insulin 300 unit/mL (1.5 mL) insulin pen See Rx Instructions .ROUTE .COMPLEX Qty: 13.5 1RF Dose Instruction: 50 UNIT (0.1667 ML) SUBCUTANEOUSLY DAILY FOR 90 DAYS Rx Instructions: 50 UNIT (0.1667 ML) SUBCUTANEOUSLY DAILY FOR 90 DAYS losartan 100 mg tablet See Rx Instructions .ROUTE .COMPLEX Qty: 90 1RF Dose Instruction: TAKE 1 TABLET BY MOUTH EVERY DAY Rx Instructions: TAKE 1 TABLET BY MOUTH EVERY DAY Follow-up/Referrals: Magali,NEIDA Borja [Primary Care Provider] -
[2024-02-22] MEDS: HYDROmorphone HCL INJ (*CRX) 1 MG/ML SYR 0.5 MG IV PUSH (17:12)
[2024-02-22] MEDS: CEFEPIME 2 GM/NS 50 ML 2 GM/50 ML BAG IVPB (17:14)
[2024-02-22] MEDS: VANCOMYCIN 1,500 MG/NS 500 ML 1,500 MG/500 ML BAG 250 MG IVPB (17:16)
[2024-02-22] MEDS: metroNIDAZOLE 500 MG/ISO 100ML 500 MG/100 ML BAG 100 MG IVPB (17:17)
[2024-02-22] MEDS: HYDROmorphone HCL INJ (*CRX) 1 MG/ML SYR IV PUSH ×2 (18:45→23:12)
[2024-02-22] MEDS: SODIUM CHLORIDE 0.9% IV 1,000 ML 100 ML IV CONT (23:13)
[2024-02-23] VITALS (42 sets, daily range): BP systolic 137–203; BP diastolic 60–107; PULSE 80–104; RESP 11–20; TEMP 36.6; O2SAT 97–100
[2024-02-23] MEDS: HYDROmorphone HCL INJ (*CRX) 1 MG/ML SYR IV PUSH ×5 (03:23→20:07)
[2024-02-23] MEDS: hydrALAZINE HCL 20 MG/ML VIAL 10 MG IV PUSH ×2 (03:35→20:20)
[2024-02-23 03:39] LABS: Glucose Point of Care 107 mg/dl (65-105)
[2024-02-23] MEDS: CEFEPIME 2 GM/NS 50 ML 2 GM/50 ML BAG IVPB ×2 (05:18→17:28)
[2024-02-23 06:46] LABS: Glucose Point of Care 118 mg/dl (65-105)
[2024-02-23 07:01] LABS: Estimated CRCL calculation 30 ml/min; Estimated Glomerular Filt Rate 26
--- NOTE | 2024-02-23 07:59 | PC.NURSE ---
Pt c/o nausea. made aware. Dr. Kelvin LU to administer 4mg IVP zofran stat.
--- NOTE | 2024-02-23 08:02 | PC.NURSE ---
Pt c/o hunger. made aware. Dr. Warren ordered regular diet. Breakfast tray ordered.
[2024-02-23] MEDS: ONDANSETRON INJ 4 MG/2 ML VIAL (08:32)
--- NOTE | 2024-02-23 10:14 | PC.NURSE ---
Pharmacy called to send up scheduled meds
[2024-02-23] MEDS: amLODIPine BESYLATE 10 MG TABLET PO (10:43)
[2024-02-23] MEDS: hydrALAZINE HCL 25 MG TABLET PO ×2 (10:43→18:08)
[2024-02-23] MEDS: LOSARTAN POTASSIUM 100 MG TABLET PO (10:44)
[2024-02-23] MEDS: SODIUM CHLORIDE 0.9% IV 1,000 ML 100 ML IV CONT ×2 (11:00→20:03)
[2024-02-23 12:59] LABS: Glucose Point of Care 179 mg/dl (65-105)
[2024-02-23 16:53] LABS: Glucose Point of Care 151 mg/dl (65-105)
--- NOTE | 2024-02-23 18:02 | PC.NURSE ---
Pharmacy called to send up pm hydralazine
[2024-02-23 18:19] LABS: Vancomycin Random 7.3 ug/mL (10-20)
--- NOTE | 2024-02-23 18:38 | PC.NURSE ---
[facility] called stating still at capacity may tomorrow 02/24/2024
[2024-02-23] MEDS: VANCOMYCIN 1,500 MG/NS 500 ML 1,500 MG/500 ML BAG 250 MG IVPB (19:33)
[2024-02-24] VITALS (57 sets, daily range): BP systolic 159–254; BP diastolic 73–225; PULSE 92–108; RESP 15–17; TEMP 36.6; O2SAT 97–100
[2024-02-24] MEDS: HYDROmorphone HCL INJ (*CRX) 1 MG/ML SYR IV PUSH ×2 (00:51→18:52)
--- NOTE | 2024-02-24 03:30 | PC.NURSE ---
See downtime charting.
--- NOTE | 2024-02-24 05:10 | PC.NURSE ---
[facility] called for an update of patient. [facility] states they are still at full capacity and will call dayshift for update on patient.
[2024-02-24 05:35] LABS: Estimated CRCL calculation 28 ml/min; Estimated Glomerular Filt Rate 24
[2024-02-24] MEDS: CEFEPIME 2 GM/NS 50 ML 2 GM/50 ML BAG IVPB ×2 (05:49→18:50)
--- NOTE | 2024-02-24 06:53 | PC.NURSE ---
Patient taken to shower. Patient puts on regular clothes by his request. Patient bedding changed.
[2024-02-24 07:11] LABS: Basophils Absolute Auto 0.1 K/mm3 (0.0-0.1); Basophils Percent Auto 0.8 % (0.2-1.2); Eosinophils Absolute Auto 0.1 K/mm3 (0-0.3); Eosinophils Percent Auto 0.8 % (0-4.4); Hematocrit 39.5 % (42.0-52.0); Immature Granulocyte Absolute 0.04 K/mm3 (0.00-0.031); Immature Granulocyte Percent A 0.6 % (0-0.5); Lymphocytes Absolute Auto 0.66 K/mm3 (0.9-3.2); Mean Corpuscular HGB Conc 32.9 g/dl (32-36); Mean Platelet Volume 9.4 fl (7.4-10.4); Monocytes Absolute Auto 0.5 K/mm3 (0.1-0.6); Monocytes Percent Auto 7.3 % (2.6-8.5); Neutrophils Absolute Auto 5.3 K/mm3 (1.3-6.7); Neutrophils Percent Auto 80.5 % (45.5-73.1); Platelet Count Result 276 k/mm3 (150-375); Red Blood Count 4.49 M/mm3 (4.6-6.20); Red Cell Distribution Width 13.5 % (11.5-14.5); White Blood Count 6.6 K/mm3 (4.5-10.0)
[2024-02-24 07:24] LABS: Alanine Aminotransferase 18 U/L (6-50); Albumin Level 3.3 g/dL (3.5-5.1); Alkaline Phosphatase 96 U/L (38-126); Anion Gap 10 mmol/L (4-12); Aspartate Amino Transferase 22 U/L (17-59); Bilirubin,Total 0.5 mg/dL (0.2-1.3); Blood Urea Nitrogen 38 mg/dL (9-20); Calcium 8.5 mg/dL (8.4-10.2); Carbon Dioxide 13 mmol/L (22-30); Chloride 110 mmol/L (98-107); Estimated CRCL calculation 27 ml/min; Estimated Glomerular Filt Rate 23; Glucose 173 mg/dL (65-110); Potassium 4.3 mmol/L (3.4-5.0); Sodium 133 mmol/L (137-145)
[2024-02-24 12:50] LABS: Glucose Point of Care 216 mg/dl (65-105)
[2024-02-24] MEDS: hydrALAZINE HCL 25 MG TABLET PO ×2 (12:52→18:50)
[2024-02-24] MEDS: LOSARTAN POTASSIUM 100 MG TABLET PO (12:52)
[2024-02-24] MEDS: amLODIPine BESYLATE 10 MG TABLET PO (12:52)
[2024-02-24 17:37] LABS: Glucose Point of Care 189 mg/dl (65-105)
[2024-02-24 22:21] LABS: Vancomycin Random 11.6 ug/mL (10-20)
[2024-02-24] MEDS: VANCOMYCIN 1,500 MG/NS 500 ML 1,500 MG/500 ML BAG 250 MG IVPB (23:22)
[2024-02-24 23:34] LABS: Glucose Point of Care 154 mg/dl (65-105)
[2024-02-25] VITALS (11 sets, daily range): BP systolic 177–196; BP diastolic 70–92; PULSE 95–100; RESP 16–18; TEMP 36.3–36.8; O2SAT 99–100; BMI 29.0
[2024-02-25] MEDS: ACETAMINOPHEN 500 MG TABLET 1000 MG PO ×2 (00:54→07:25)
[2024-02-25] MEDS: CEFEPIME 2 GM/NS 50 ML 2 GM/50 ML BAG IVPB ×2 (06:00→16:08)
[2024-02-25 07:02] LABS: Basophils Percent Auto 0.7 % (0.2-1.2); Eosinophils Absolute Auto 0.1 K/mm3 (0-0.3); Eosinophils Percent Auto 1.6 % (0-4.4); Hematocrit 38.4 % (42.0-52.0); Hemoglobin 12.8 g/dL (14.0-18.0); Immature Granulocyte Absolute 0.05 K/mm3 (0.00-0.031); Immature Granulocyte Percent A 0.9 % (0-0.5); Lymphocytes Absolute Auto 0.87 K/mm3 (0.9-3.2); Lymphocytes Percent Auto 15.1 % (18.3-44.2); Mean Corpuscular HGB Conc 33.3 g/dl (32-36); Mean Corpuscular Hemoglobin 29.5 pg (26-34); Mean Corpuscular Volume 88.5 fl (80-100); Mean Platelet Volume 9.7 fl (7.4-10.4); Monocytes Absolute Auto 0.5 K/mm3 (0.1-0.6); Monocytes Percent Auto 8.3 % (2.6-8.5); Neutrophils Absolute Auto 4.3 K/mm3 (1.3-6.7); Neutrophils Percent Auto 73.4 % (45.5-73.1); Platelet Count Result 281 k/mm3 (150-375); Red Blood Count 4.34 M/mm3 (4.6-6.20); Red Cell Distribution Width 13.4 % (11.5-14.5); White Blood Count 5.8 K/mm3 (4.5-10.0)
[2024-02-25 07:08] LABS: Anion Gap 11 mmol/L (4-12); Blood Urea Nitrogen 39 mg/dL (9-20); Calcium 8.9 mg/dL (8.4-10.2); Carbon Dioxide 15 mmol/L (22-30); Chloride 110 mmol/L (98-107); Estimated CRCL calculation 29 ml/min; Estimated Glomerular Filt Rate 25; Glucose 153 mg/dL (65-110); Potassium 4.3 mmol/L (3.4-5.0); Sodium 136 mmol/L (137-145)
--- NOTE | 2024-02-25 08:07 | PM.IMHP ---
H&P: HPI History of Present Illness Date/Time: 02/25/24 08:07 Chief Complaint: left sided facial droop Narrative: 68Year old male with past medical history CKD stage IIIb, hypertension, hyperlipidemia, and type 2 diabetes presents to the hospital for left-sided facial droop. Patient states that he has been struggling with severe otitis media for the past 4 months. He has been following with [facility] ENT Dr Harrison since that time. He states that he was originally supposed to go to the ENT office every week for a cleaning however this change to every 5 weeks or so which led to worsening of his ear infections. He began noticing the ear becoming more painful and swelling to the surrounding area. He notes that he has been on several different antibiotics since establishing at the ENT office. He is unsure what the past medications were, but the most recent prescription was for ciprofloxacin. He has not yet completed the course of ciprofloxacin. He states that on Tuesday he developed an eyes flicker (fluttering of the right eye with difficulty keeping it open) and slight slurring of his speech. He denies any vision changes. He attempted to contact his ENT doctor but was unable to get a hold of him. On Tuesday he then developed the left facial droop which prompted him to come to the ED. He denies any tingling, numbness, or weakness to any of the extremities and any altered mental status. He also denies any chest pain, palpitations, shortness of breath, nausea/vomiting and abdominal pain. ED workup: CBC without leukocytosis, H/H 12.8 / 38.4, PLT 281. Chemistry unremarkable. BUN/creatinine 39/2.60. Chest XR: No acute cardiopulmonary disease. Head CT: No acute intracranial findings. Head/neck CTA: Left-sided otitis media, otitis externa, and mastoiditis with subperiosteal abscess of the mastoid portion of the left temporal bone. Involvement of the left facial nerve is likely the cause of the patient's symptoms, Normal brain, Small versus occluded left P1 posterior cerebral artery segment, and 0% stenosis of the proximal internal carotid arteries relative to normal distal artery lumen diameters (NASCET criteria). Per chart review, ED physician spoke with Dr. Castrejon with ENT at [facility] who recommended transfer due to potential surgery. Patient was started on vanc and cefepime. [facility] was consulted for transfer as patient follows with ENT at that facility, patient was accepted. Per ENT patient does not need to be started on valacyclovir or prednisone at this time. Review of Systems Review of Systems: All systems reviewed & are unremarkable except as noted in HPI and below PMFSH Past Medical History Medical History Adrenal adenoma Body mass index (BMI) 23 or greater (05/26/18) Chronic kidney disease Essential (primary) hypertension High thyroid stimulating hormone (TSH) level Hyperkalemia Hyperlipidemia Hypertension Hypertriglyceridemia Murmur Obesity Type 2 diabetes mellitus with proteinuria Surgical History Surgical History Hx of appendectomy Family History Family History Other Cerebrovascular accident Family history of cardiovascular disease Hypertension Social History Social History (Updated 02/25/24 @ 13:35 by Ashley Gan PA-C) Social History: Lives at home with his , sister in law and his niece. Has race horses. Smoking status: Never smoker Second hand tobacco smoke exposure: No Alcohol intake: never Substance use: never Substance use type: does not use Do You Feel Safe in your Home?: Yes Lack of Transportation: No Lack of Food: Never True Current Housing: I Have Housing Concerned About Future Housing: No Difficulty Paying Gas/Electric Bills: No Difficulty Paying for Meds: No Currently Unemployed: No Education: High School Diploma/GED Difficulty w/ Childcare or Family Care: No Spiritual care concerns: No Meds Home Medications and Allergies Home Medications Medication Instructions Recorded Confirmed Type lancets 33 gauge (OneTouch Delica See Rx Instructions .Route 11/24/20 10/18/23 Rx Plus Lancet) .COMPLEX #400 ea pen needle, diabetic 32 gauge x See Rx Instructions .Route 11/24/20 10/18/23 Rx 5/32 (BD Margarita 2nd Gen Pen Needle) .COMPLEX #100 syringes omeprazole 40 mg capsule,delayed 40 mg PO BID 07/14/22 02/25/24 History release blood sugar diagnostic (OneTouch #400 ea 01/11/23 10/18/23 Rx Verio test strips) blood-glucose meter,continuous #1 ea 01/19/23 02/25/24 Rx (Dexcom G7 Supervisor Area) blood-glucose sensor (Dexcom G7 #9 ea 01/19/23 10/18/23 Rx Sensor device) insulin lispro-aabc 100 unit/mL 18 unit (0.18 mL) subcut TIDWMEAL 01/19/23 10/18/23 Rx subcutaneous pen (Tom Mitchell #54 mL U-100 Insulin) rosuvastatin 20 mg tablet See Rx Instructions .Route 01/19/23 02/25/24 Rx .COMPLEX #90 tabs hydralazine 25 mg tablet 50 mg PO BID 08/10/23 02/25/24 History semaglutide 1 mg/dose (4 mg/3 mL) 1 mg (0.75 mL) subcut WEEKLY 90 08/10/23 02/25/24 Rx subcutaneous pen injector (Ozempic) days #9 mL icosapent ethyl 1 gram capsule 2 g PO BID #360 caps 08/22/23 02/25/24 Rx (Vascepa) dapagliflozin propanediol 10 mg 10 mg PO DAILY #90 tabs 09/12/23 10/18/23 Rx tablet (Farxiga) amlodipine 10 mg tablet See Rx Instructions .Route 10/11/23 02/25/24 Rx .COMPLEX #90 tabs ergocalciferol (vitamin D2) 1,250 See Rx Instructions .Route 11/03/23 02/25/24 Rx mcg (50,000 unit) capsule .COMPLEX #14 caps insulin glargine U-300 conc 300 See Rx Instructions .Route 11/03/23 Rx unit/mL (1.5 mL) subcutaneous pen .COMPLEX #13.5 mL (Toujeo SoloStar U-300 Insulin) metoprolol succinate 25 mg See Rx Instructions .Route 11/03/23 Rx tablet,extended release 24 hr .COMPLEX #90 tabs losartan 100 mg tablet See Rx Instructions .Route 11/04/23 Rx .COMPLEX #90 tabs ciprofloxacin 0.3 %-dexamethasone 4 drp EACH EAR Q12H 7 days #7.5 mL 12/07/23 02/25/24 Rx 0.1 % ear drops,suspension hydrocodone 5 mg-acetaminophen 325 1 tablet PO Q6H PRN pain #20 tabs 12/07/23 02/25/24 Rx mg tablet aspirin 81 mg PO DIRECTED 02/22/24 02/22/24 History dapagliflozin propanediol 10 mg 10 mg DAILY 02/22/24 02/25/24 History tablet (Farxiga) insulin glargine U-300 conc 300 50 unit subcut HS 02/22/24 02/25/24 History unit/mL (1.5 mL) subcutaneous pen (Toujeo SoloStar U-300 Insulin) insulin lispro-aabc 100 unit/mL 18 unit subcut TIDWMEAL 02/22/24 02/25/24 History subcutaneous pen (Lyumjev KwikPen U-100 Insulin) losartan 100 mg tablet 100 mg PO DAILY 02/22/24 02/25/24 History metoprolol succinate 25 mg 25 mg PO DAILY 02/22/24 02/25/24 History tablet,extended release 24 hr Allergies Allergy/AdvReac Type Severity Reaction Status Date / Time No Known Allergies Allergy Verified 02/22/24 13:09 Vital Signs Vital Signs - 24 hr 02/24/24 11:11 02/24/24 10:00 02/24/24 12:50 Temperature 97.8 F Pulse Rate 107 H 97 Respiratory Rate 16 16 Blood Pressure 159/94 H 186/83 H Pulse Oximetry 99 99 98 02/24/24 18:50 02/24/24 23:33 02/24/24 08:15 Temperature Pulse Rate 100 92 Respiratory Rate 17 16 Blood Pressure 189/82 H 196/90 H Pulse Oximetry 98 99 99 02/24/24 08:32 02/24/24 08:45 02/24/24 09:00 Temperature Pulse Rate Respiratory Rate Blood Pressure Pulse Oximetry 99 97 98 02/24/24 09:15 02/24/24 09:33 02/25/24 02:28 Temperature Pulse Rate Respiratory Rate Blood Pressure Pulse Oximetry 99 99 100 02/25/24 02:30 02/25/24 02:45 02/25/24 03:00 Temperature Pulse Rate Respiratory Rate Blood Pressure Pulse Oximetry 100 99 100 02/25/24 03:15 02/25/24 07:28 Temperature 97.6 F Pulse Rate 96 Respiratory Rate 18 Blood Pressure 177/92 H Pulse Oximetry 99 100 Exam Narrative: General: male in no acute respiratory distress who is nontoxic appearing, lying semi recumbent in bed. HEENT: Normocephalic. Pain along the mastoid and wrapping around the occipital region. Pupils equal round reactive to light. Extraocular movement intact. Sclera clear and anicteric. Left facial asymmetry. Neck: Neck was supple. No dominant adenopathy, thyromegaly or masses. Chest: Lungs are clear to auscultation bilaterally. No wheezes or crackles. CV: Heart was regular rate and rhythm. S1/S2. No murmurs, gallops, or rubs. Abd: Abdomen was soft. Nontender. Nondistended. Positive bowel sounds. No organomegaly or masses. Ext: No clubbing, cyanosis, or edema. 2+ DP pulses bilaterally. Neuro: Patient is alert and oriented x4. Strength is 5/5 in both upper and lower extremities in pushes and pulls. No upper extremity drift Cranial nerves 2-12 are intact. Speech is slurred. Psych: Normal mood and affect. Patient is pleasant and cooperative. Skin: Warm and dry. No rashes noted. H&P: Results Labs Labs: Short CBC 02/25/24 Range/Units 06:50 WBC 5.8 (4.5-10.0) K/mm3 Hgb 12.8 L (14.0-18.0) g/dL Hct 38.4 L (42.0-52.0) % Plt Count 281 (150-375) k/mm3 BMP 02/25/24 06:50 Sodium 136 L Potassium 4.3 Chloride 110 H Carbon Dioxide 15 L BUN 39 H Creatinine 2.60 H Glucose 153 H Calcium 8.9 Assessment and Plan Assessment and plan (1) Mastoiditis: Code(s): H70.90 - Unspecified mastoiditis, unspecified ear Status: Acute Assessment and Plan: Per chart review, ED physician spoke with Dr. Castrejon with ENT at [facility] who recommended transfer due to potential surgery. Patient was started on vanc and cefepime in the ED. [facility] was consulted for transfer as patient follows with ENT Dr. Au at that facility, patient was accepted. Per ENT patient does not need to be started on valacyclovir or prednisone at this time. Antibiotics: Vancomycin (dosing per pharmacy) and Cefepime 2g BID, started on 02/22 Blood cultures obtained on 02/21: NGTD Head CT: No acute intracranial findings. Head/neck CTA: Left-sided otitis media, otitis externa, and mastoiditis with subperiosteal abscess of the mastoid portion of the left temporal bone. Involvement of the left facial nerve is likely the cause of the patient's symptoms. Normal brain. Small versus occluded left P1 posterior cerebral artery segment 0% stenosis of the proximal internal carotid arteries relative to normal distal artery lumen diameters (NASCET criteria). Monitor vital signs, neuro status and patient is a fall risk Monitor serum electrolytes and CBC (2) Type 2 diabetes mellitus: Code(s): E11.9 - Type 2 diabetes mellitus without complications Status: Acute Assessment and Plan: - hypoglycemia protocol - POC blood glucose ACHS - home medication - semaglutide 0.7 ml IM weekly, farxiga 10 mg daily, lispro 18 units TIDWM, lantus 50 units HS, - correct regimen ordered - low dose SSI - BG has been well controlled despite not being on his home medications - Continue to monitor - A1C 7.2 (3) Hypertension: Qualifiers: Hypertension type: essential hypertension Qualified Code(s): I10 - Essential (primary) hypertension Code(s): I10 - Essential (primary) hypertension Status: Acute Assessment and Plan: Chronic, continue home medications - amlodipine 10 mg daily - losartan 100 mg daily - hydralazine 50 mg BID - metoprolol 25 mg daily - monitor (4) Chronic kidney disease, stage 3b: Code(s): N18.32 - Chronic kidney disease, stage 3b Status: Acute Assessment and Plan: BUN/Cr 39/2.60 with GFR 25 on admission. Cr 2.10 on 12/07/23. - renally dose medications - avoid nephrotoxic medications - monitor I/O - monitor electrolytes Quality VTE Prophylaxis VTE prophylaxis: pharmacologic ordered Hospitalist [facility] Advance Care Plan I have confirmed that the patient's Advanced Care Plan is present, code status is documented, or surrogate decision maker is listed in patient medical record.: Yes Medication Reconciliation I have utilized all available resources to obtain, update and review the patients current medications (includes all prescriptions, OTC, herbals, cannabis, and nutritional supplements).: Yes
--- NOTE | 2024-02-25 08:14 | ADMGEN ---
This patient, Alex Rachel, was admitted to Medical Room 255-. Patient/family oriented to hospital policies and general routines including ID bracelet, bed and alarms, visiting hours, pain management, procedures, bathroom and other care routines, personal items, smoking policy, room service/diet, and visiting hours. Information on how to activate the Rapid Response Team has been discussed. Patient/Family are encouraged to report perceived risks to care and to ask questions if they do not understand what they are told or what they should do.
[2024-02-25] MEDS: amLODIPine BESYLATE 10 MG TABLET PO (08:19)
[2024-02-25] MEDS: hydrALAZINE HCL 25 MG TABLET PO (08:19)
[2024-02-25] MEDS: LOSARTAN POTASSIUM 100 MG TABLET PO (08:19)
[2024-02-25 09:18] LABS: Hemoglobin A1C 7.2 % (<5.7)
--- NOTE | 2024-02-25 10:31 | ADMGEN ---
Addendum entered by Sofia Rucker RN 02/25/24 12:18: pt arrived to floor at 0814, admission assessment completed by Staci Joseph RN Original Note: This patient, Alex Rachel, was admitted to 2 Medical Room [facility]-01. Patient/family oriented to hospital policies and general routines including ID bracelet, bed and alarms, visiting hours, pain management, procedures, bathroom and other care routines, personal items, smoking policy, room service/diet, and visiting hours. Information on how to activate the Rapid Response Team has been discussed. Patient/Family are encouraged to report perceived risks to care and to ask questions if they do not understand what they are told or what they should do.
[2024-02-25] MEDS: HYDROcodone/acetaminophen (*CRX) 5-325 MG TABLET 1 TAB PO ×2 (14:00→19:38)
--- NOTE | 2024-02-25 16:00 | P.TS_ITS ---
Transfer Discharge Sum: Prov Provider Date of admission: 02/25/24 11:44 Primary care physician: Sara De Los Santos, PA Admitting clinician: Zay Spaulding MD Attending physician on discharge: Emmanuel Burden Discharging clinician: Ashley Gan Anticipated date of transfer: 02/25/24 Receiving physician/facility: [facility]/Dr. Pierce Hospitalist DS: Admitting Diagnosis Discharge Date 02/25/2024 Admitting Diagnosis Mastoiditis type 2 diabetes hypertension CKD DS: Discharge Diagnosis Discharge Diagnosis (1) Mastoiditis: Code(s): H70.90 - Unspecified mastoiditis, unspecified ear Status: Acute (2) Type 2 diabetes mellitus: Code(s): E11.9 - Type 2 diabetes mellitus without complications Status: Acute (3) Hypertension: Qualifiers: Hypertension type: essential hypertension Qualified Code(s): I10 - Essential (primary) hypertension Code(s): I10 - Essential (primary) hypertension Status: Acute (4) Chronic kidney disease, stage 3b: Code(s): N18.32 - Chronic kidney disease, stage 3b Status: Acute Transfer Discharge Sum: Med Medications Active and Home Medications: Home Medications lancets 33 gauge (LaThermTouch Delica Plus Lancet) See Rx Instructions .Route .COMPLEX #400 ea 11/24/20 [Rx Confirmed 10/18/23] pen needle, diabetic 32 gauge x 5/32 (BD Margarita 2nd Gen Pen Needle) See Rx Instructions .Route .COMPLEX #100 syringes 11/24/20 [Rx Confirmed 10/18/23] omeprazole 40 mg capsule,delayed release 40 mg PO BID 07/14/22 [History Confirmed 02/25/24] blood sugar diagnostic (Mangrove Systemsuch Verio test strips) #400 ea 01/11/23 [Rx Conf irmed 10/18/23] blood-glucose meter,continuous (Dexcom G7 Freight And Passenger Agent) #1 ea 01/19/23 [Rx Confirmed 02/25/24] blood-glucose sensor (Dexcom G7 Sensor device) #9 ea 01/19/23 [Rx Confirmed 10/18/23] insulin lispro-aabc 100 unit/mL subcutaneous pen (Zakiyaummarixa RuthPen U-100 Insulin) 18 unit (0.18 mL) subcut TIDWMEAL #54 mL 01/19/23 [Rx Confirmed 10/18/23] rosuvastatin 20 mg tablet See Rx Instructions .Route .COMPLEX #90 tabs 01/19/23 [Rx Confirmed 02/25/24] hydralazine 25 mg tablet 50 mg PO BID 08/10/23 [History Confirmed 02/25/24] semaglutide 1 mg/dose (4 mg/3 mL) subcutaneous pen injector (Ozempic) 1 mg (0.75 mL) subcut WEEKLY 90 days #9 mL 08/10/23 [Rx Confirmed 02/25/24] icosapent ethyl 1 gram capsule (Vascepa) 2 g PO BID #360 caps 08/22/23 [Rx Confirmed 02/25/24] dapagliflozin propanediol 10 mg tablet (Farxiga) 10 mg PO DAILY #90 tabs 09/12/23 [Rx Confirmed 10/18/23] amlodipine 10 mg tablet See Rx Instructions .Route .COMPLEX #90 tabs 10/11/23 [Rx Confirmed 02/25/24] ergocalciferol (vitamin D2) 1,250 mcg (50,000 unit) capsule See Rx Instructions .Route .COMPLEX #14 caps 11/03/23 [Rx Confirmed 02/25/24] insulin glargine U-300 conc 300 unit/mL (1.5 mL) subcutaneous pen (Toujeo SoloStar U-300 Insulin) See Rx Instructions .Route .COMPLEX #13.5 mL 11/03/23 [Rx] metoprolol succinate 25 mg tablet,extended release 24 hr See Rx Instructions .Route .COMPLEX #90 tabs 11/03/23 [Rx] losartan 100 mg tablet See Rx Instructions .Route .COMPLEX #90 tabs 11/04/23 [Rx] ciprofloxacin 0.3 %-dexamethasone 0.1 % ear drops,suspension 4 drp EACH EAR Q12H 7 days #7.5 mL 12/07/23 [Rx Confirmed 02/25/24] hydrocodone 5 mg-acetaminophen 325 mg tablet 1 tablet PO Q6H PRN pain #20 tabs 12/07/23 [Rx Confirmed 02/25/24] aspirin 81 mg tablet 81 mg PO DAILY 02/22/24 [History Confirmed 02/25/24] dapagliflozin propanediol 10 mg tablet (Farxiga) 10 mg DAILY 02/22/24 [History Confirmed 02/25/24] insulin glargine U-300 conc 300 unit/mL (1.5 mL) subcutaneous pen (Toubernardao SoloStar U-300 Insulin) 50 unit subcut HS 02/22/24 [History Confirmed 02/25/24] insulin lispro-aabc 100 unit/mL subcutaneous pen (Tom RuthPen U-100 Insulin) 18 unit subcut TIDWMEAL 02/22/24 [History Confirmed 02/25/24] losartan 100 mg tablet 100 mg PO DAILY 02/22/24 [History Confirmed 02/25/24] metoprolol succinate 25 mg tablet,extended release 24 hr 25 mg PO DAILY 02/22/24 [History Confirmed 02/25/24] Active Medications Hydrocodone Bitart/Acetaminophen (Hydrocodone/Acetaminophen (*Crx) 5-325 Mg Tablet) 1 tab PO Q6H PRN PRN Reason: PAIN RATED 4-6 Last Admin: 02/25/24 14:00 Dose: 1 tab Amlodipine Besylate (Amlodipine Besylate 10 Mg Tablet) 10 mg PO DAILY [facility] Last Admin: 02/25/24 08:19 Dose: 10 mg Aspirin (Aspirin 81 Mg Enteric Tablet) 81 mg PO QAM [facility] Dextrose (Dextrose 50% 25 Gm/50 Ml Syringe) 12.5 gm IV PUSH PRN PRN; Protocol PRN Reason: Hypoglycemia Enoxaparin Sodium (Enoxaparin 40 Mg/0.4 Ml Syringe) 40 mg SUB-Q DAILY [facility] Glucagon (Glucagon For Inj 1 Mg Vial) 1 mg IM PRN PRN; Protocol PRN Reason: Hypoglycemia Glucose (Glucose Oral Gel 15 Gm Of Glucse In 37.5 Gm Tube) 15 gm PO PRN PRN; Protocol PRN Reason: Hypoglycemia Hydralazine HCl (Hydralazine Hcl 50 Mg Tablet) 50 mg PO BID [facility] Hydromorphone HCl (Hydromorphone Hcl Inj (*Crx) 1 Mg/Ml Syr) 1 mg IV PUSH Q4H PRN PRN Reason: Pain Rated 7-10 Last Admin: 02/24/24 18:52 Dose: 1 mg Cefepime HCl (Maxipime 2 Gm/Ns 50 Ml) 2 gm in 50 mls @ 100 mls/hr IVPB Q12H [facility] Last Infusion: 02/25/24 06:51 Dose: Infused Dextrose (Dextrose 5% 1,000 Ml) 1,000 mls @ 100 mls/hr IVPB PRN PRN; Protocol PRN Reason: Hypoglycemia Insulin Aspart (Insulin Aspart (*Bkc) 100 Units/Ml) 1 - 2 units SUB-Q HS [facility]; Protocol Losartan Potassium (Losartan Potassium 100 Mg Tablet) 100 mg PO DAILY [facility] Last Admin: 02/25/24 08:19 Dose: 100 mg Metoprolol Succinate (Metoprolol Succinate Ext Rel 25 Mg Tabcr) 25 mg PO DAILY [facility] Pantoprazole Sodium (Pantoprazole 40 Mg Tablet) 40 mg PO BID [facility] Rosuvastatin Calcium (Rosuvastatin 20 Mg Tablet) 20 mg PO DAILY [facility] Vancomycin HCl (Vancomycin For Acute Kidney Injury) 1 each IVPB PRN PRN PRN Reason: Vancomycin Protocol Transfer Discharge Sum: Hosp Hospital Course Hospital course: Alex Rachel is a 68 year old male with past medical history CKD stage IIIb, hypertension, hyperlipidemia, and type 2 diabetes presents to the hospital for left-sided facial droop. Patient stated that he had been struggling with severe otitis media for the past 4 months. He has been following with [facility] Dr Lisa joyner since that time. He began noticing the ear becoming more painful and swelling to the surrounding area. He notes that he has been on several different antibiotics since establishing at the ENT office. He is unsure what the past medications were, but the most recent prescription was for ciprofloxacin. On Tuesday he developed an eyes flicker (fluttering of the right eye with difficulty keeping it open) and slight slurring of his speech. He attempted to contact his ENT doctor but was unable to get a hold of him. On Tuesday he then developed the left facial droop which prompted him to come to the ED. In the ED his Head CT showed no acute intracranial findings. Head/neck CTA showed left- sided otitis media, otitis externa, and mastoiditis with subperiosteal abscess of the mastoid portion of the left temporal bone. Involvement of the left facial nerve is likely the cause of the patient's symptoms, Normal brain, Small versus occluded left P1 posterior cerebral artery segment, and 0% stenosis of the proximal internal carotid arteries relative to normal distal artery lumen diameters (NASCET criteria). Per chart review, ED physician spoke with Dr. Castrejon with ENT at [facility] who recommended transfer due to potential surgery. Patient was started on vanc and cefepime. [facility] was consulted for transfer as patient follows with ENT at that facility, patient was accepted. Per ENT patient does not need to be started on valacyclovir or prednisone. Patient was boarded in the ED for several days, being officially admitted to the floor on 02/24. On 02/24 [facility] had a bed available and patient was transferred for higher level of care. Patient had no complaints at time of discharge, denying any chest pain, palpitations, shortness of breath, nausea/vomiting and abdominal pain. Patient transferred to [facility] hospital in a stable condition. Time Spent with Patient Time attestation: Total time spent providing and/or coordinating transfer services: Total time spent: Greater than 30 minutes Exam Narrative: General: male in no acute respiratory distress who is nontoxic appearing, lying semi recumbent in bed. HEENT: Normocephalic. Pain along the mastoid and wrapping around the occipital region. Pupils equal round reactive to light. Extraocular movement intact. Sclera clear and anicteric. Left facial asymmetry. Neck: Neck was supple. No dominant adenopathy, thyromegaly or masses. Chest: Lungs are clear to auscultation bilaterally. No wheezes or crackles. CV: Heart was regular rate and rhythm. S1/S2. No murmurs, gallops, or rubs. Abd: Abdomen was soft. Nontender. Nondistended. Positive bowel sounds. No organomegaly or masses. Ext: No clubbing, cyanosis, or edema. 2+ DP pulses bilaterally. Neuro: Patient is alert and oriented x4. Strength is 5/5 in both upper and lower extremities in pushes and pulls. No upper extremity drift Cranial nerves 2-12 are intact. Speech is slurred. Psych: Normal mood and affect. Patient is pleasant and cooperative. Skin: Warm and dry. No rashes noted. DS: Data Data Completed and Pending Completed studies during hospitalization: head CT chest x-ray head/neck CTA Labs on day of discharge: Labs from last 24 hours 02/25/24 02/24/24 02/24/24 06:50 23:27 20:47 WBC 5.8 RBC 4.34 L Hgb 12.8 L Hct 38.4 L MCV 88.5 MCH 29.5 MCHC 33.3 RDW 13.4 Plt Count 281 MPV 9.7 Immature Gran % (Auto) 0.9 H Neut % (Auto) 73.4 H Lymph % (Auto) 15.1 L Howard % (Auto) 8.3 Eos % (Auto) 1.6 Baso % (Auto) 0.7 Lymph # (Auto) 0.87 L Howard # (Auto) 0.5 Eos # (Auto) 0.1 Baso # (Auto) 0.0 Abs Immat Gran (auto) 0.05 H Absolute Neuts (auto) 4.3 Absolute Nucleated RBC 0.000 Nucleated RBC % 0.0 Sodium 136 L Potassium 4.3 Chloride 110 H Carbon Dioxide 15 L Anion Gap 11 BUN 39 H Creatinine 2.60 H Estim Creat Clear Calc 29 Estimated GFR 25 L Glucose 153 H POC Capillary Glucose 154 H Hemoglobin A1c 7.2 H Calcium 8.9 Random Vancomycin 11.6 02/24/24 17:33 WBC RBC Hgb Hct MCV MCH MCHC RDW Plt Count MPV Immature Gran % (Auto) Neut % (Auto) Lymph % (Auto) Howard % (Auto) Eos % (Auto) Baso % (Auto) Lymph # (Auto) Howard # (Auto) Eos # (Auto) Baso # (Auto) Abs Immat Gran (auto) Absolute Neuts (auto) Absolute Nucleated RBC Nucleated RBC % Sodium Potassium Chloride Carbon Dioxide Anion Gap BUN Creatinine Estim Creat Clear Calc Estimated GFR Glucose POC Capillary Glucose 189 H Hemoglobin A1c Calcium Random Vancomycin Preliminary micro results at discharge 02/22/24 16:53 Blood Culture - Preliminary Blood 02/22/24 16:54 Blood Culture - Preliminary Blood
[2024-02-25] MEDS: PANTOPRAZOLE 40 MG TABLET PO (16:08)
[2024-02-25] MEDS: ASPIRIN 81 MG ENTERIC TABLET PO (16:08)
[2024-02-25] MEDS: hydrALAZINE HCL 20 MG/ML VIAL 10 MG IV PUSH (16:09)
--- NOTE | 2024-02-25 17:00 | PC.NURSE ---
report called to [facility] sixth floor nurse's station, reviewed plan of care and med list
[2024-02-25] MEDS: hydrALAZINE HCL 50 MG TABLET PO (18:37)
== END 2024-02-25 19:40 | disposition short-term general hospital (02) | DRG 153 ==
LOC: ANHED 19:49 → ANH2MED 02-25 07:50
PROVIDERS: Emergency Medicine; Admitting Provider Internal Medicine; Emergency Provider Emergency Medicine; PCP Physician Assistant; Visit Provider Student in an Organized Health Care Education/Training Program
DX: H70.012 Subperiosteal abscess of mastoid, left ear (principal); I12.9 Hypertensive chronic kidney disease with stage 1 through stage 4 chronic kidney disease, or unspecified chronic kidney disease; E78.5 Hyperlipidemia, unspecified; E78.1 Pure hyperglyceridemia; E11.9 Type 2 diabetes mellitus without complications; N18.32 Chronic kidney disease, stage 3b; Z79.4 Long term (current) use of insulin
CPT/HCPCS: 36415; 70450; 70496; 70498; 71045; 80048; 80053; 80202; 82565; 82948; 83036; 84484; 85025; 85610; 85730; 87040; 93005; 96365; 96366; 96367; 96375; 96376; 99285; A9270; G0378; J0360; J0692; J1171; J1836; J2405; J3370; J7030; Q9967